=== PATIENT | male | born 1940 | race Caucasian/White ===

== ENCOUNTER 2016-11-24 21:29 | Emergency (ER) | payer OTHER, MEDICARE ==
[~2016-11-24] VITALS: Ht 172.7 cm; Wt 68.2 kg
[2016-11-24 21:31] VITALS: TEMP 97.6
[2016-11-24] MEDS ORDERED: ASPIRIN 81M81 MG/TA2 PO (21:33)
[2016-11-24] MEDS ORDERED: CALCIUM CARBON500 M1 PO (22:02)
[2016-11-24] MEDS ORDERED: VITAMIN C500 MG PO (22:02)
[2016-11-24] MEDS ORDERED: LASIX 80MG TABL80 MG PO (22:02)
[2016-11-24] MEDS ORDERED: PRIL40 PO (22:02)
[2016-11-24] MEDS ORDERED: OCUVITE1 TA1 PO (22:03)
[2016-11-24] MEDS ORDERED: GLUCOPHAGE500 MG/TAB PO (22:03)
[2016-11-24] MEDS ORDERED: MULTIPLE VITAMI1 CAP PO (22:03)
[2016-11-24] MEDS ORDERED: LIPITOR 10MG10 MG PO (22:04)
[2016-11-24] MEDS ORDERED: ULTRAM 50MG TAB50 MG PO (22:05)
[2016-11-24] MEDS ORDERED: PERCOCET 325 MG1 TAB PO (22:05)
[2016-11-25 00:10] VITALS: BP 147/58; PULSE 87
== END 2016-11-25 00:10 | disposition home or self-care (01) ==
LOC: COL.ER 21:29
DX: S01.81XA Laceration without foreign body of other part of head, initial encounter (principal); W18.09XA Striking against other object with subsequent fall, initial encounter

== ENCOUNTER 2024-03-14 15:52 | Emergency (ER) | payer MEDICARE ==
[~2024-03-14] VITALS: Ht 170.2 cm; Wt 68.2 kg
[~2024-03-14 15:52] MED LIST: ASPIRIN 81M81 MG/TA2 PO; CALCIUM CARBON500 M1 PO; DAZIDOX20 MG PO; GLUCOPHAGE500 MG/TAB PO; LASIX 40MG TABL40 MG PO; LASIX 80MG TABL80 MG PO; LIPITOR 10MG10 MG PO; MULTIPLE VITAMI1 CAP PO; NEURONTIN300 MG/CAP PO; OCUVITE1 TA1 PO; PERCOCET 325 MG1 TAB PO; PLAVIX 75MG TAB75 MG PO; PRIL40 PO; ULTRAM 50MG TAB50 MG PO; VITAMIN C500 MG PO
[2024-03-14 15:59] VITALS: TEMP 97.7
[2024-03-14 19:09] VITALS: BP 153/89; PULSE 68
== END 2024-03-14 19:11 | disposition home or self-care (01) ==
LOC: COL.ER 15:52
DX: S09.90XA Unspecified injury of head, initial encounter (principal); S01.81XA Laceration without foreign body of other part of head, initial encounter; Z79.02 Long term (current) use of antithrombotics/antiplatelets; W01.198A Fall on same level from slipping, tripping and stumbling with subsequent striking against other object, initial encounter